=== PATIENT | male | born 2000 | race Caucasian/White ===

== ENCOUNTER 2025-04-07 09:42 | Outpatient (CLI) | payer OTHER | END 2025-04-07 09:43 | disposition home or self-care (01) | LOC: SCSRAD 09:42 | PROVIDERS: ATTEND Nurse Practitioner Family | DX: S69.91XA Unspecified injury of right wrist, hand and finger(s), initial encounter (principal); S62.630A Displaced fracture of distal phalanx of right index finger, initial encounter for closed fracture ==